=== PATIENT | male | born 1975 | race Caucasian/White ===

== ENCOUNTER 2021-04-12 11:19 | Emergency (ER) | payer OTHER, MEDICAID ==
--- NOTE | 2021-04-12 12:19 | CR ---
EXAMINATION: Wrist Comp Min 3V Lt SEX: Male AGE: 45 years CLINICAL HISTORY: 45-year-old male complaining of left wrist injury (moving equipment). Interpretation: Soft tissue swelling (STS) over the ulnar aspect of the left hand and wrist. Homogeneous normal bone density for age and gender. *No sign of left wrist or metacarpal bone fracture/dislocation. No chronic arthritic degenerative change No foreign bodies. No subcutaneous air.
--- NOTE | 2021-04-12 12:35 | EDM.PDOC ---
ED HPI GENERAL MEDICAL PROBLEM - General Chief Complaint: Upper Extremity Injury/Pain Stated Complaint: [id number] HURT WRIST AT WORK [employer] Time Seen by Provider: 04/12/21 12:25 Source of Information: Reports: Patient History Limitations: Reports: No Limitations - History of Present Illness INITIAL COMMENTS - FREE TEXT/NARRATIVE: This 45 yo male patient reports to the ED with left wrist pain. The patient reports he was lifting some heavy equipment today when he noticed increased pain to his wrist. The patient denies any additional symptoms at this time. Onset: Today Duration: Constant Location: Reports: Upper Extremity, Left (wrist) Quality: Reports: Ache, Dull Severity: Moderate Improves with: Reports: Rest Worsens with: Reports: Movement Associated Symptoms: Reports: No Other Symptoms Left Wrist Pain Score (Numeric/FACES): 4 - Related Data Allergies Allergy/AdvReac Type Severity Reaction Status Date / Time No Known Allergies Allergy Verified 04/12/21 11:59 Past Medical History - Past Health History Medical/Surgical History: Denies Medical/Surgical History Musculoskeletal History: Reports: Back Pain, Chronic Psychiatric History: Reports: Depression Social & Family History - Tobacco Use Tobacco Use Status *Q: Never Tobacco User Second Hand Smoke Exposure: No - Caffeine Use Caffeine Use: Reports: None - Recreational Drug Use Recreational Drug Use: No Review of Systems - Review of Systems Review Of Systems: Comprehensive ROS is negative, except as noted in HPI. ED EXAM, GENERAL - Physical Exam Exam: See Below Exam Limited By: No Limitations General Appearance: Alert, WD/WN, Mild Distress Eye Exam: Bilateral Eye: EOMI, Normal Inspection, PERRL Ears: Normal External Exam, Normal Canal, Hearing Grossly Normal, Normal TMs Nose: Normal Inspection, Normal Mucosa, No Blood Throat/Mouth: Normal Inspection, Normal Lips, Normal Teeth, Normal Gums, Normal Oropharynx, Normal Voice, No Airway Compromise Head: Atraumatic, Normocephalic Neck: Normal Inspection, Supple, Non-Tender, Full Range of Motion Respiratory/Chest: No Respiratory Distress, Lungs Clear, Normal Breath Sounds, No Accessory Muscle Use, Chest Non-Tender Cardiovascular: Normal Peripheral Pulses, Regular Rate, Rhythm, No Edema, No Gallop, No JVD, No Murmur, No Rub GI/Abdominal: Normal Bowel Sounds, Soft, Non-Tender, No Organomegaly, No Distention, No Abnormal Bruit, No Mass (Male) Exam: Deferred Rectal (Males) Exam: Deferred Back Exam: Normal Inspection, Full Range of Motion, NT Extremities: Arm Pain (left wrist pain) Neurological: Alert, Oriented, CN II-XII Intact, Normal Cognition, Normal Gait, Normal Reflexes, No Motor/Sensory Deficits Psychiatric: Normal Affect, Normal Mood Skin Exam: Warm, Dry, Intact, Normal Color, No Rash Lymphatic: No Adenopathy Course - Vital Signs Last Recorded V/S: Last Vital Signs Temp 97.6 F 04/12/21 11:59 Pulse 85 04/12/21 11:59 Resp 16 04/12/21 11:59 BP 129/79 04/12/21 11:59 Pulse Ox 98 04/12/21 11:59 Departure - Departure Time of Disposition: 12:30 Disposition: Home, Self-Care 01 Condition: Fair Clinical Impression: Left wrist sprain Qualifiers: Encounter type: initial encounter Qualified Code(s): S63.502A - Unspecified sprain of left wrist, initial encounter - Discharge Information *PRESCRIPTION DRUG MONITORING PROGRAM REVIEWED*: Not Applicable *COPY OF PRESCRIPTION DRUG MONITORING REPORT IN PATIENT OMAR: Not Applicable Instructions: Wrist Sprain, Adult Care Plan Goals: The patient was advised of the examination and x-ray results during the visit. The patient was placed in a manufactured left wrist splint. The patient was encouraged to rest, ice and elevate his left wrist over the next 48 hours. If the patient has any additional symptoms or concerns, the patient should either return to the emergency department or visit his primary care facility. Sepsis Event Note (ED) - Evaluation Sepsis Screening Result: No Definite Risk - Focused Exam Vital Signs: Vital Signs Temp Pulse Resp BP Pulse Ox 04/12/21 11:59 97.6 F 85 16 129/79 98
== END 2021-04-12 12:43 | disposition home or self-care (01) ==
LOC: DL.ED 11:19
DX: S63.502A Unspecified sprain of left wrist, initial encounter (principal); X50.0XXA Overexertion from strenuous movement or load, initial encounter; Y99.0 Civilian activity done for income or pay
CPT/HCPCS: 73110-LT; 99282; 99283-25